=== PATIENT | female | born 1980 | race Caucasian/White ===

== ENCOUNTER → 2017-08-06 | Outpatient (CLI) | payer BC | LOC: RAD 18:04 | DX: S82.892K Other fracture of left lower leg, subsequent encounter for closed fracture with nonunion (principal) ==

== ENCOUNTER 2021-02-22 21:15 | Emergency (ER) | payer BC ==
[~2021-02-22] VITALS: Ht 167.6 cm; Wt 106.8 kg
[2021-02-22] MEDS ORDERED: PANTOPRAZOLE SO40 MG PO (22:29)
[2021-02-22] MEDS ORDERED: ROXICODONE 55 MG/TAB PO (22:29)
[2021-02-23 00:01] LABS: BASO # 0.03 K/mm3 (0.02-0.10); EOS # 0.09 K/mm3 (0.04-0.40); EOS % 1.1 % (1.0-5.0); HEMATOCRIT 42.6 % (37.0-47.0); HEMOGLOBIN 14.2 g/dL (12.5-16.0); LYMPH# 1.52 K/mm3 (1.50-4.00); MEAN CELL VOLUME 88 fl (78-100); MEAN CORPUSCULAR HEMOGLOBIN 30 pg (27-31); MEAN CORPUSCULAR HGB CONC 33 g/dL (33-37); MEAN PLATELET VOLUME 10.5 fl (7.4-10.4); MONO # 0.96 K/mm3 (0.20-0.80); NEU # 5.87 K/mm3 (1.40-6.50); PLATELET COUNT 339 K/mm3 (130-400); RED BLOOD COUNT 4.82 M/mm3 (4.10-5.30); RED CELL DISTRIBUTION WIDTH 13.7 % (11.5-14.5); WHITE BLOOD COUNT 8.5 K/mm3 (4.8-10.8)
[2021-02-23 00:03] LABS: ALBUMIN 4.2 g/dL (3.5-5.0)
[2021-02-23 00:05] LABS: CALCIUM 9.5 mg/dL (8.3-10.5); TOTAL BILIRUBIN 0.4 mg/dL (0.2-1.2); TOTAL PROTEIN 7.9 g/dL (6.4-8.3)
[2021-02-23 08:36] LABS: HEMATOCRIT 39.8 % (37.0-47.0); HEMOGLOBIN 13.5 g/dL (12.5-16.0); MEAN PLATELET VOLUME 10.7 fl (7.4-10.4); RED BLOOD COUNT 4.58 M/mm3 (4.10-5.30); RED CELL DISTRIBUTION WIDTH 13.7 % (11.5-14.5)
[2021-02-23 08:48] LABS: ALBUMIN 3.9 g/dL (3.5-5.0); POTASSIUM 3.6 mmol/L (3.5-5.1)
[2021-02-23 08:50] LABS: TOTAL PROTEIN 7.2 g/dL (6.4-8.3)
[2021-02-23 08:52] LABS: TOTAL BILIRUBIN 0.4 mg/dL (0.2-1.2)
[2021-02-23 11:27] VITALS: BP 118/73
== END 2021-02-23 11:23 | disposition home or self-care (01) ==
LOC: ED 21:15
PROVIDERS: Family Medicine
DX: K95.89 Other complications of other bariatric procedure (principal); E87.2 Acidosis; E86.9 Volume depletion, unspecified; E66.9 Obesity, unspecified
CPT/HCPCS: J0595; J3480

== ENCOUNTER → 2023-08-28 | Outpatient (CLI) | payer BC ==
[~2023-08-28] MED LIST: PANTOPRAZOLE SO40 MG PO; ROXICODONE 55 MG/TAB PO
== END ==
LOC: LAB 17:13
DX: N39.0 Urinary tract infection, site not specified (principal)

== ENCOUNTER 2023-12-08 16:20 | Emergency (ER) | payer BC ==
[~2023-12-08] VITALS: Ht 172.7 cm; Wt 63.6 kg
[2023-12-08] MEDS ORDERED: NS 1,000 ML IV ONE (16:45)
[2023-12-08] MEDS ORDERED: Ketorolac 30 MG/ML VIAL IV ONE (17:00)
[2023-12-08 17:08] LABS: BASO # 0.01 K/mm3 (0.02-0.10); EOS # 0.02 K/mm3 (0.04-0.40); EOS % 0.3 % (1.0-5.0); HEMATOCRIT 34.7 % (37.0-47.0); HEMOGLOBIN 11.4 g/dL (12.5-16.0); LYMPH# 0.35 K/mm3 (1.50-4.00); MEAN CELL VOLUME 85 fl (78-100); MEAN CORPUSCULAR HEMOGLOBIN 28 pg (27-31); MEAN CORPUSCULAR HGB CONC 33 g/dL (33-37); MEAN PLATELET VOLUME 10.3 fl (7.4-10.4); MONO # 0.28 K/mm3 (0.20-0.80); PLATELET COUNT 256 K/mm3 (130-400); RED BLOOD COUNT 4.07 M/mm3 (4.10-5.30); RED CELL DISTRIBUTION WIDTH 14.2 % (11.5-14.5)
[2023-12-08 17:11] LABS: ALBUMIN 4.2 g/dL (3.5-5.0); SODIUM 137 mmol/L (136-145)
[2023-12-08 17:12] LABS: CALCIUM 9.3 mg/dL (8.3-10.5)
[2023-12-08 17:14] LABS: GLUCOSE 102 mg/dL (65-105); TOTAL PROTEIN 7.2 g/dL (6.4-8.3)
[2023-12-08 17:15] LABS: CARBON DIOXIDE 20 mmol/L (22-29); TOTAL BILIRUBIN 0.7 mg/dL (0.2-1.2)
[2023-12-08 17:19] LABS: AST-SGOT 34 U/L (5-34)
[2023-12-08 17:20] LABS: ALT/SGPT 24 U/L (0-55)
[2023-12-08 17:21] LABS: URINE WBC 0 /hpf (0-3)
[2023-12-08 17:33] LABS: TROPONIN-I < 0.030 ng/mL (0.00-0.033)
[2023-12-08 17:40] LABS: URINE APPEARANCE CLEAR (CLEAR); URINE COLOR YELLOW (YELLOW)
[2023-12-08 17:43] LABS: URINE BILIRUBIN NEGATIVE (NEGATIVE); URINE BLOOD TRACE-INTACT (NEGATIVE); URINE GLUCOSE NEGATIVE (NEGATIVE); URINE KETONE 2+ (NEGATIVE); URINE LEUKOCYTE ESTERASE NEGATIVE (NEGATIVE); URINE NITRATE NEGATIVE (NEGATIVE); URINE PROTEIN(semi-quant) NEGATIVE (NEGATIVE)
[2023-12-08] MEDS ORDERED: CIPRO500 M1 PO (17:59)
[2023-12-08] MEDS ORDERED: cefTRIAXone 1 G in Water For Injection,Sterile 10 ML IV ONE (18:00)
[2023-12-08 18:38] VITALS: BP 104/59
== END 2023-12-08 18:44 | disposition home or self-care (01) ==
LOC: ED 16:20
PROVIDERS: Family Medicine
DX: H66.91 Otitis media, unspecified, right ear (principal)
CPT/HCPCS: J0696; J1885; J7030